=== PATIENT | female | born 1985 | race African-American/Black ===

== ENCOUNTER 2017-03-13 17:07 | Emergency (ER) | payer OTHER ==
[~2017-03-13] VITALS: Ht 167.6 cm; Wt 77.2 kg
[~2017-03-13 17:07] MED LIST: NOHOMEMEDS
[2017-03-13] MEDS ORDERED: ALBUTEROL2.5 MG/3 M IH (19:51)
[2017-03-13] MEDS ORDERED: PREDNISONE20 MG PO (19:51)
[2017-03-13 20:07] VITALS: BP 111/72
== END 2017-03-13 20:08 | disposition home or self-care (01) ==
LOC: EME 17:07
DX: J45.901 Unspecified asthma with (acute) exacerbation (principal); Z88.0 Allergy status to penicillin
CPT/HCPCS: 94640; 99281; 99284; J7512